=== PATIENT | female | born 1990 | race African-American/Black ===

== ENCOUNTER 2020-11-29 11:48 | Emergency (ER) | payer MEDICAID ==
[~2020-11-29] VITALS: Ht 175.3 cm; Wt 75.0 kg
[2020-11-29] MEDS ORDERED: TRAZ-257 PO (12:08)
[2020-11-29 15:06] VITALS: BP 114/72
== END 2020-11-29 15:15 | disposition home or self-care (01) ==
LOC: EMS 12:00
DX: S61.512A Laceration without foreign body of left wrist, initial encounter (principal); F32.9 Major depressive disorder, single episode, unspecified; F17.210 Nicotine dependence, cigarettes, uncomplicated; F19.90 Other psychoactive substance use, unspecified, uncomplicated; X58.XXXA Exposure to other specified factors, initial encounter; Y93.89 Activity, other specified; Y92.89 Other specified places as the place of occurrence of the external cause; Y99.8 Other external cause status
CPT/HCPCS: 99281; Z7502